=== PATIENT | male | born 1995 | race Caucasian/White ===

== ENCOUNTER 2018-05-19 09:39 | Emergency (ER) | payer OTHER ==
--- NOTE | 2018-05-19 10:14 | XRAY Report ---
Reason: Crate vs hand Procedure Date: 05/19/2018 Accession Number: [id number] / [id number] Procedure: XR - Hand 3 View RT CPT Code: FULL RESULT: EXAM: RIGHT HAND RADIOGRAPHY EXAM DATE: 05/19/2018 10:03 AM. CLINICAL HISTORY: Crate versus hand. COMPARISON: None. TECHNIQUE: 3 views. FINDINGS: Bones: Normal. No acute fractures or bone lesions. Sequela of remote fracture of the ulnar styloid. Joints: Normal. No subluxations. Note: The fifth digit is in slightly abducted position relative to the other digits on all images. Soft Tissues: Normal. No soft tissue swelling. IMPRESSION: No acute fractures appreciated. RADIA
--- NOTE | 2018-05-19 12:38 | ED Physician Documentation ---
PD HPI UPPER EXT INJURY - Stated complaint Stated Complaint: R HAND INJ - Chief complaint Chief Complaint: Ext Problem - History obtained from History obtained from: Patient - History of Present Illness Location: Right, Finger (pinky) Type of injury: Crush (crate) Where injury occurred: Work Timing - onset: How many hours ago (3) Timing - duration: Hours (3) Timing - details: Abrupt onset Pain level max: 5 Pain level now: 3 Improved by: Rest Worsened by: Moving, Palpating Associated symptoms: No: Weakness, Numbness, Tingling, Swelling Contributing factors: No: Anticoagulated, Prior ortho surgery Similar symptoms before: Has not had sx before Recently seen: Not recently seen - Additonal information Additional information: pt is right handed Review of Systems Constitutional: denies: Fever, Chills Neurologic: denies: Focal weakness, Numbness PD PAST MEDICAL HISTORY - Past Medical History Past Medical History: No - Past Surgical History Past Surgical History: No - Allergies Allergies/Adverse Reactions: Allergies Allergy/AdvReac Type Severity Reaction Status Date / Time No Known Drug Allergies Allergy Verified 05/19/18 09:46 - Living Situation Living Arrangement: reports: At home - Social History Does the pt have substance abuse?: No - Family History Family history: reports: Non contributory PD ED PE NORMAL - Vitals Vital signs reviewed: Yes - General General: Alert and oriented X 3, No acute distress - HEENT HEENT: Moist mucous membranes - Derm Derm: Warm and dry - Extremities Extremities: Other (R hand - ecchymosis and swelling to the 5th digit. NVI. FROM present. tendons tested vs resistance.) - Neuro Neuro: Alert and oriented X 3 Results - Vitals Vitals: Vital Signs - 24 hr 05/19/18 05/19/18 09:44 11:45 Temperature 36.1 C L 36.3 C L Heart Rate 62 64 Respiratory 16 24 Rate Blood Pressure 140/78 H 137/65 H O2 Saturation 100 100 Oxygen O2 Source Room air - Rads (name of study) R hand xray Radiology: Prelim report reviewed, EMP read contemporaneously, See rad report (no acute fracture or dislocation.) PD MEDICAL DECISION MAKING - ED course Complexity details: reviewed results, considered differential, d/w patient ED course: r 5th digit sprain/crush injury. NVI. Normal xray. Placed in a foam splint. Patient counseled regarding signs and symptoms for which I believe and urgent re-evaluation would be necessary. Patient with good understanding of and agreement to plan and is comfortable going home at this time This document was made in part using voice recognition software. While efforts are made to proofread this document, sound alike and grammatical errors may occur. Departure - Departure Disposition: Home, Self Care Clinical Impression: Sprain of finger of right hand Qualifiers: Encounter type: initial encounter Finger: little finger Sprain of finger site: unspecified site Qualified Code(s): S63.616A - Unspecified sprain of right little finger, initial encounter Condition: Good Instructions: ED Sprain Finger Follow-Up: Provider,Other [Primary Care Provider] - Within 1 week Comments: You can use Motrin or Tylenol as needed for pain. Wear the splint as needed for comfort. Return if you worsen. Follow-up with your doctor in 1 week if you are still having pain. Your xray is normal today
[2018-05-19 13:15] VITALS: BP 124/77
== END 2018-05-19 13:41 | disposition home or self-care (01) ==
LOC: ED 09:39
DX: S63.616A Unspecified sprain of right little finger, initial encounter (principal); W23.0XXA Caught, crushed, jammed, or pinched between moving objects, initial encounter; Y99.0 Civilian activity done for income or pay
CPT/HCPCS: 29130; 99283

== ENCOUNTER 2018-11-15 23:07 | Emergency (ER) | payer OTHER ==
--- NOTE | 2018-11-16 00:08 | XRAY Report ---
Reason: injury Procedure Date: 11/15/2018 Accession Number: [id number] / [id number] Procedure: XR - Knee 4 View RT CPT Code: FULL RESULT: EXAM: RIGHT KNEE RADIOGRAPHY EXAM DATE: 11/15/2018 11:37 PM. CLINICAL HISTORY: Injury. COMPARISON: None. TECHNIQUE: 4 views. FINDINGS: Bones: No fracture seen. Joints: No dislocation. Joint spaces appear preserved. Possible small joint effusion. Soft Tissues: Soft tissue swelling. IMPRESSION: 1. No fracture or dislocation seen. 2. Soft tissue swelling and possible small joint effusion. RADIA
--- NOTE | 2018-11-16 00:15 | ED Physician Documentation ---
PD HPI LOWER EXT INJURY - Stated complaint Stated Complaint: KNEE PX - Chief complaint Chief Complaint: Ext Problem - History obtained from History obtained from: Patient - History of Present Illness PD HPI LOW EXT INJURY LOCATION: Right, Knee Type of injury: Fall (he was walking up steep steps carrying 50 lb object, foot slipped and he fell directly forward onto right knee. Able to stand and walk with pain, but the knee has gotten more swollen and painful to move over couple of hours.). No: Twist Where injury occurred: Work Timing - onset: How many hours ago (few), Today Timing - details: Abrupt onset (initial injury abrupt but then pain worsening over couple hours.) Worsened by: Moving, Palpating, Other (he says it hurts to flex or extend out of the slight flexed position he is in.) Associated symptoms: Swelling (at the knee). No: Weakness, Numbness Similar symptoms before: Has not had sx before Recently seen: Not recently seen Review of Systems Skin: denies: Abrasion (s), Laceration (s) Musculoskeletal: denies: Joint pain Neurologic: denies: Focal weakness, Numbness PD PAST MEDICAL HISTORY - Past Medical History Cardiovascular: None Respiratory: None Neuro: None Endocrine/Autoimmune: None GI: None : None HEENT: None Psych: None Musculoskeletal: None - Past Surgical History Past Surgical History: No - Present Medications Home Medications: Ambulatory Orders Medication Instructions Recorded Confirmed Hydrocodone/Acetaminophen [[place] 1 each PO Q6H PRN #15 tablet 11/16/18 5-325 Tablet] RX: Ibuprofen 600 mg PO TID PRN #25 tablet 11/16/18 - Allergies Allergies/Adverse Reactions: Allergies Allergy/AdvReac Type Severity Reaction Status Date / Time No Known Drug Allergies Allergy Verified 11/15/18 23:23 - Social History Does the pt smoke?: No Smoking Status: Never smoker Does the pt have substance abuse?: No - Immunizations Immunizations are current?: Yes PD ED PE NORMAL - Vitals Vital signs reviewed: Yes - General General: Alert and oriented X 3 - Derm Derm: Normal color, Warm and dry - Extremities Extremities: Other (right knee with tenderness anteriorly. Moderate effusion. Limited exam due to guarding. No gross laxity on cruciate testing. Some pivot testing pain, so consider meniscal injury) Results - Vitals Vitals: Vital Signs - 24 hr 11/15/18 11/16/18 23:20 00:57 Temperature 37.7 C H 36.4 C L Heart Rate 78 66 Respiratory 16 16 Rate Blood Pressure 120/54 L 146/54 H O2 Saturation 97 99 Oxygen O2 Source Room air - Rads (name of study) right knee Radiology: Prelim report reviewed, EMP read contemporaneously (no fractures. Some effusion. ), See rad report PD MEDICAL DECISION MAKING - ED course Complexity details: reviewed results, considered differential (mostly contusion with effusion. Consider meniscal injury as well. Less likely PCL. Splint and crutches and recheck in 3-5 days when swelling lessened. ), d/w patient Departure - Departure Disposition: 01 Home, Self Care Clinical Impression: Knee contusion, Knee effusion, Accidental fall Condition: Stable Record reviewed to determine appropriate education?: Yes Instructions: ED Meniscal Injury Knee Poss, ED Effusion Knee Follow-Up: RICCO YUN [Primary Care Provider] - Prescriptions: Hydrocodone/Acetaminophen [[place] 5-325 Tablet] 1 each PO Q6H PRN #15 tablet PRN Reason: Pain RX: Ibuprofen 600 mg PO TID PRN #25 tablet PRN Reason: Pain Comments: Use the knee brace and crutches over the next 3 to 5 days to protect the knee and help reduce swelling in the effusion. This will be appropriate treatment if you do have other injury such as cruciate or meniscal injury. At this point though I think it is mostly bruised with the use effusion that is causing the symptoms. See how much better he got over the next 3 to 5 days and follow-up with your primary care or orthopedics at that point for reexam. If there is still concern at that point for meniscal or cruciate injury, they can do more advanced imaging or it may be able to tell by just a good exam without it hurting. Meanwhile use some anti-inflammatory such as ibuprofen 3 times a day and add Tylenol or hydrocodone if needed for pain. Off work for the next few days. Forms: Activity restrictions Discharge Date/Time: 11/16/18 01:06
[2018-11-16] MEDS ORDERED: IBUPROFEN 800 MG TABLET PO STA (00:33)
[2018-11-16] MEDS ORDERED: oxyCODONE 5 MG TABLET PO STA (00:33)
[2018-11-16 00:59] VITALS: BP 146/54
== END 2018-11-16 01:06 | disposition home or self-care (01) ==
LOC: ED 23:07
DX: S80.01XA Contusion of right knee, initial encounter (principal); W10.8XXA Fall (on) (from) other stairs and steps, initial encounter; Y93.89 Activity, other specified; Y99.0 Civilian activity done for income or pay; M25.461 Effusion, right knee
CPT/HCPCS: 73564; 99283; A9270

== ENCOUNTER 2021-01-23 11:09 | Emergency (ER) | payer OTHER ==
--- NOTE | 2021-01-23 11:27 | ED Physician Documentation ---
PD HPI CHEST PAIN - Stated complaint Stated Complaint: CHEST PX/L ARM NUMBNESS - Chief complaint Chief Complaint: Cardiac - History obtained from History obtained from: Patient - History of Present Illness Timing - onset: Today Timing - onset during: Light activity Timing - duration: Hours (1) Timing - details: Abrupt onset, Still present (but lessening), Other (he has had similar in the past month or so, with eval at clinics. Normal ECGs and labs. notes it most often lying down, particularly on stomach, less lying on back. No exertional symptoms. 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 Recently back from deployment and is to followup with PCP here. Was in [facility] then in [facility].) Review of Systems Constitutional: denies: Fever, Chills Nose: denies: Rhinorrhea / runny nose, Congestion Throat: denies: Sore throat Respiratory: denies: Dyspnea (denies exertional symptoms.), Cough GI: denies: Abdominal Pain, Nausea, Vomiting Skin: denies: Rash, Lesions Neurologic: denies: Generalized weakness, Near syncope PD PAST MEDICAL HISTORY - Past Medical History Cardiovascular: None Respiratory: None Neuro: None Endocrine/Autoimmune: None GI: None : None HEENT: None Psych: None Musculoskeletal: None - Past Surgical History Past Surgical History: No - Present Medications Home Medications: Ambulatory Orders Medication Instructions Recorded Confirmed Omeprazole Magnesium 20 mg PO DAILY 01/23/21 01/23/21 Sucralfate [Carafate] 1 gm PO TID 10 Days #30 tablet 01/23/21 - Allergies Allergies/Adverse Reactions: Allergies Allergy/AdvReac Type Severity Reaction Status Date / Time No Known Drug Allergies Allergy Verified 11/15/18 23:23 - Social History Does the pt smoke?: No Smoking Status: Never smoker Does the pt drink ETOH?: Yes Does the pt have substance abuse?: No - Immunizations Immunizations are current?: Yes - POLST Patient has POLST: No PD ED PE NORMAL - Vitals Vital signs reviewed: Yes - General General: Alert and oriented X 3, Well developed/nourished - HEENT HEENT: Pharynx benign - Neck Neck: Supple, no meningeal sign, No adenopathy - Cardiac Cardiac: RRR, No murmur - Respiratory Respiratory: Clear bilaterally, Other (no chestwall tenderness) - Abdomen Abdomen: Soft, Non tender - Derm Derm: Normal color, Warm and dry - Extremities Extremities: Normal ROM s pain, No edema, No calf tenderness / cord - Neuro Neuro: Alert and oriented X 3, No motor deficit, Normal speech Eye Opening: Spontaneous Motor: Obeys Commands Verbal: Oriented GCS Score: 15 - Psych Psych: Normal mood, Normal affect Results - Vitals Vitals: Oxygen O2 Source Room air - EKG (time done) 11:16 Rate: Rate (enter#) (64) Rhythm: NSR [place]: Normal Intervals: Normal [place] QRS: Normal Ischemia: Normal ST segments, T wave inversion (F, V1 but is concordant with the QRS.). No: ST elevation c/w ischemia - Labs Labs: Laboratory Tests 01/23/21 01/23/21 01/23/21 11:55 11:55 11:55 WBC 8.7 RBC 5.36 Hgb 15.4 Hct 45.6 MCV 85.1 MCH 28.7 MCHC 33.8 RDW 12.4 Plt Count 338 MPV 10.2 Neut # (Auto) 5.3 Lymph # (Auto) 2.5 Trigg # (Auto) 0.7 Eos # (Auto) 0.1 Baso # (Auto) 0.1 Absolute Nucleated RBC 0.00 Nucleated RBC % 0.0 D-Dimer < 200.0 L Sodium 139 Potassium 3.7 Chloride 100 L Carbon Dioxide 28 Anion Gap 11.0 BUN 17 Creatinine 0.9 Estimated GFR (MDRD) 104 Glucose 93 Calcium 10.1 Total Bilirubin 0.9 AST 23 ALT 38 Alkaline Phosphatase 64 Troponin I High Sens B-Natriuretic Peptide Total Protein 8.9 H Albumin 5.3 Globulin 3.6 Albumin/Globulin Ratio 1.5 Lipase 45 01/23/21 01/23/21 11:55 11:55 WBC RBC Hgb Hct MCV MCH MCHC RDW Plt Count MPV Neut # (Auto) Lymph # (Auto) [place]igg # (Auto) Eos # (Auto) Baso # (Auto) Absolute Nucleated RBC Nucleated RBC % D-Dimer Sodium Potassium Chloride Carbon Dioxide Anion Gap BUN Creatinine Estimated GFR (MDRD) Glucose Calcium Total Bilirubin AST ALT Alkaline Phosphatase Troponin I High Sens 2.6 B-Natriuretic Peptide 8 Total Protein Albumin Globulin Albumin/Globulin Ratio Lipase - Rads (name of study) chest xray Radiology: Prelim report reviewed (normal), See rad report Departure - Departure Disposition: Home, Self Care Clinical Impression: Chest pain Qualifiers: Chest pain type: precordial pain Qualified Code(s): R07.2 - Precordial pain GERD with esophagitis Qualifiers: Esophagitis bleeding: without hemorrhage Qualified Code(s): K21.00 - Gastro- esophageal reflux disease with esophagitis, without bleeding Condition: Stable Record reviewed to determine appropriate education?: Yes Instructions: ED GERD Follow-Up: TERESA SCHMID MD [Primary Care Provider] - Prescriptions: Sucralfate [Carafate] 1 gm PO TID 10 Days #30 tablet Comments: Your EKG, chest x-ray, blood tests are normal so no evidence for more significant causes of your chest pain. At this point it does sound likely to be some irritation of the stomach and esophagus with likely occasional spasming of the esophagus for the worse episodes. I would continue your omeprazole daily. To that add sacral fate as directed to coat the esophagus as well. In particular to be using this before bedtime regularly. Add Tylenol every 4-6 hours as needed for pains. Follow-up with your primary care for further assessment and treatments. I transmitted your prescription to [facility] pharmacy in [place]. Discharge Date/Time: 01/23/21 13:13
[2021-01-23] MEDS ORDERED: MAG HYDROX/AL HYDROX/SIMETH 30 ML UDC PO STA (12:14)
[2021-01-23] MEDS ORDERED: KETOROLAC 15 MG/ML VIAL IVP STA (12:14)
[2021-01-23 12:20] LABS: BASOPHILS # (AUTO) 0.1 10^3/uL (0.0-0.1); BASOPHILS % (AUTO) 0.6 %; EOSINOPHILS # (AUTO) 0.1 10^3/uL (0.0-0.7); EOSINOPHILS % (AUTO) 1.3 %; HCT - HEMATOCRIT 45.6 % (42.0-52.0); HGB - HEMOGLOBIN 15.4 g/dL (14.0-18.0); LYMPHOCYTES # (AUTO) 2.5 10^3/uL (1.5-3.5); LYMPHOCYTES % (AUTO) 28.6 %; MEAN CORPUSCULAR HEMOGLOBIN 28.7 pg (27.0-31.0); MEAN CORPUSCULAR HGB CONC 33.8 g/dL (32.0-36.0); MEAN CORPUSCULAR VOLUME 85.1 fL (80.0-94.0); MEAN PLATELET VOLUME 10.2 fL (7.4-11.4); MONOCYTES # (AUTO) 0.7 10^3/uL (0.0-1.0); MONOCYTES % (AUTO) 7.8 %; NEUTROPHILS # (AUTO) 5.3 10^3/uL (1.5-6.6); NEUTROPHILS % (AUTO) 61.1 %; PLT - PLATELET COUNT 338 10^3/uL (130-450); RED BLOOD COUNT 5.36 10^6/uL (4.70-6.10); RED CELL DISTRIBUTION WIDTH 12.4 % (12.0-15.0); WHITE BLOOD COUNT 8.7 x10^3/uL (4.8-10.8)
[2021-01-23 12:32] LABS: ALBUMIN 5.3 g/dL (3.2-5.5); ALBUMIN/GLOBULIN RATIO 1.5 (1.0-2.2); BILIRUBIN,TOTAL 0.9 mg/dL (0.2-1.0); CALCIUM 10.1 mg/dL (8.5-10.3); CREATININE 0.9 mg/dL (0.6-1.2); POTASSIUM 3.7 mmol/L (3.5-5.0); TOTAL PROTEIN 8.9 g/dL (6.7-8.2)
--- NOTE | 2021-01-23 12:37 | XRAY Report ---
PROCEDURE: Chest 1 View X-Ray INDICATIONS: Chest Pain TECHNIQUE: One view of the chest was acquired. COMPARISON: None FINDINGS: Surgical changes and devices: None. Lungs and pleura: No pleural effusions or pneumothorax. Lungs are clear. Mediastinum: Mediastinal contours appear normal. Heart size is normal. Bones and chest wall: No suspicious bony lesions. Overlying soft tissues appear unremarkable. IMPRESSION: No acute cardiopulmonary pathology. Reviewed by: Osiel Heath MD on 01/23/2021 12:35 PM PDT Approved by: Osiel Heath MD on 01/23/2021 12:35 PM PDT Station ID: [id number]
[2021-01-23 13:15] VITALS: BP 136/78
== END 2021-01-23 13:13 | disposition home or self-care (01) ==
LOC: ED 11:09
DX: R07.2 Precordial pain (principal); K21.00 Gastro-esophageal reflux disease with esophagitis, without bleeding
CPT/HCPCS: 36415; 71045; 80053; 83690; 83880; 84484; 85025; 85379; 93005; 96374; 99284; A9270